=== PATIENT | male | born 1980 | race Caucasian/White ===

== ENCOUNTER → 2020-11-02 07:14 | Outpatient (CLI) | payer OTHER, SELFPAY ==
[2020-11-02 08:02] LABS: Add Manual Diff / Slide Review NO; Basophils Absolute Auto 0 /uL (0-100); Basophils Percent Auto 0.7 % (0-2); Eosinophils Absolute Auto 200 /uL (0-450); Eosinophils Percent Auto 3.9 % (2-4); Hematocrit 44.4 % (41-53); Lymphocytes Absolute Auto 2000 /uL (1100-4500); Lymphocytes Percent Auto 40.2 % (25-40); Mean Corpuscular HGB Conc 33.9 % (30-36); Mean Corpuscular Hemoglobin 30.3 PG (26-34); Mean Corpuscular Volume 89.3 fL (80-100); Monocytes Absolute Auto 600 /uL (0-900); Monocytes Percent Auto 12.8 % (3-14); Neutrophils Absolute Auto 2100 /uL (1500-7000); Neutrophils Percent Auto 42.4 % (50-75); Platelet Count 314 X10^3/uL (150-400); Red Blood Cell Count 4.97 X10^6/uL (4.5-5.9); Red Cell Distribution Width 12.8 % (11.6-14.8)
[2020-11-02 08:08] LABS: Hemoglobin A1C% w Est Avg Glu 5.4 % (4.0-6.0)
[2020-11-02 08:22] LABS: Alanine Aminotransferase 29 IU/L (<50); Albumin 4.5 g/dL (3.5-5.0); Albumin Globulin Ratio 1.6 (1.0-2.8); Alkaline Phosphatase 56 U/L (38-126); Aspartate Aminotransferase 25 IU/L (17-59); Bilirubin Total 0.4 mg/dL (0.2-1.3); Blood Urea Nitrogen 16 mg/dL (9-20); Calcium 9.8 mg/dL (8.4-10.2); Carbon Dioxide 32 mmol/L (22-32); Chloride 102 mmol/L (98-107); Cholesterol 306 mg/dL (140-199); Estimated Glomerular Filt Rate > 60.0 mL/min (>60); Globulin 2.8 g/dL (1.7-4.1); Glucose 109 mg/dL (70-100); HDL Cholesterol 74 mg/dL (40-60); HEMOLYSIS < 15 (0-50); LDL Cholesterol Calculated 215 mg/dL (<100); Sodium 140 mmol/L (137-145); Total Protein 7.3 g/dL (6.3-8.2); Triglycerides 84 mg/dL (35-150)
[2020-11-02 08:54] LABS: Testosterone 372 ng/dL (132-813)
[2020-11-02 08:55] LABS: Vitamin D 25 Hydroxy (D3) 44.8 ng/mL (30.0-100.0)
[2020-11-02 08:56] LABS: Free T3, Triiodothyronine Free 3.65 pg/mL (2.77-5.27)
[2020-11-03 05:36] LABS: Dehydroepiandrosterone Sulfate 41.8 ug/dL (102.6-416.3)
== END ==
PROVIDERS: Referring Provider Nurse Practitioner Psychiatric/Mental Health; Visit Provider Nurse Practitioner Psychiatric/Mental Health
DX: R53.83 Other fatigue (principal); E55.9 Vitamin D deficiency, unspecified
CPT/HCPCS: 36415; 80053; 80061; 82139; 82306; 82627; 83036; 84403; 84439; 84443; 84481; 85025

== ENCOUNTER → 2021-02-28 06:30 | Outpatient (CLI) | payer OTHER, SELFPAY ==
--- NOTE | 2021-02-28 | DI.MRI.S_ITS ---
PROCEDURE: MR SHOULDER LT WO CON INDICATIONS: Pain in left shoulder TECHNIQUE: Noncontrast oblique coronal T2 fast spin echo with fat saturation, oblique sagittal T1 spin echo and T2 fast spin echo with fat saturation, axial T1 spin echo and T2 fast spin echo with fat saturation through the shoulder. COMPARISON: None. FINDINGS: Image quality: Excellent. Rotator cuff: Tendinosis and low to moderate grade articular and bursal surface partial thickness tear involving distal supraspinatus at its insertion on the humeral head is seen extending to musculotendinous junction. Distal infraspinatus tendinosis and low-grade bursal surface partial-thickness tear near musculotendinous junction is also seen. Distal subscapularis tendinosis is seen. No full-thickness rotator cuff tendon rupture. Sagittal images demonstrate no significant muscle atrophy. Bones and bursae: No bone marrow contusions or fractures. Moderate acromioclavicular joint osteoarthritic changes are noted with downward osteophyte formation depressing the musculotendinous junction of supraspinatus. Mild glenohumeral joint osteoarthritic changes also seen. There is trace amount of joint effusion and subacromial subdeltoid bursal fluid.. Capsule and soft tissues: Labrum is grossly intact. Glenohumeral ligaments are intact. The long head of the biceps tendon demonstrates normal location and morphology. The rotator interval appears normal, without fibrosis. The coracohumeral ligament is normal in thickness. IMPRESSION: 1. Tendinosis and low to moderate grade articular and bursal surface partial thickness tear involving distal supraspinatus extending to musculotendinous junction. Tendinosis and low-grade bursal surface partial thickness tear involving distal infraspinatus near musculotendinous junction. Distal subscapularis tendinosis. No full-thickness rotator cuff tendon rupture. 2. Mild to moderate acromioclavicular joint osteoarthritis and mild glenohumeral joint osteoarthritis. 3. No evidence of gross focal labral tear. Dictated by: Karsten Ceballos M.D. on 02/28/2021 at 9:12 Approved by: Karsten Ceballos M.D. on 02/28/2021 at 9:14
== END ==
PROVIDERS: Referring Provider Student in an Organized Health Care Education/Training Program; Visit Provider Student in an Organized Health Care Education/Training Program
DX: M75.112 Incomplete rotator cuff tear or rupture of left shoulder, not specified as traumatic (principal); M19.012 Primary osteoarthritis, left shoulder; M25.512 Pain in left shoulder; M67.814 Other specified disorders of tendon, left shoulder; G25.89 Other specified extrapyramidal and movement disorders
CPT/HCPCS: 73221